=== PATIENT | female | born 1955 | race Caucasian/White ===

== ENCOUNTER 2018-10-25 06:02 | Emergency (ER) | payer SELFPAY ==
[~2018-10-25] VITALS: Ht 167.6 cm; Wt 81.8 kg
[~2018-10-25 06:02] MED LIST: CLONAZEPAM1 MG PO; CYMBALTA 60MG60 MG PO; GLIPIZIDE ER5 MG PO; IBUPROFEN800 MG PO; KLONOPIN 1MG1 M1 PO; LASIX40 MG PO; LIPITOR20 MG PO; LISINOPRIL10 MG PO; LORTAB 5/500 501 TAB PO; METFORMIN500 MG PO; PENNSAID 150 M150 ML TP; PREVACID 15MG15 M1 PO; SYNTHROID0.112 MG PO; TYLENOL 325MG325 MG PO
[2018-10-25 06:45] VITALS: BP 199/100; PULSE 85
== END 2018-10-25 06:45 | disposition short-term general hospital (02) ==
LOC: COL.ER 06:02
DX: I63.9 Cerebral infarction, unspecified (principal); E11.9 Type 2 diabetes mellitus without complications; Z79.84 Long term (current) use of oral hypoglycemic drugs
CPT/HCPCS: J7050

== ENCOUNTER 2019-06-01 07:33 | Outpatient (CLI) | payer MEDICAID ==
[2019-06-01] VITALS (7 sets, daily range): BP systolic 143–162; BP diastolic 64–81; PULSE 59–76
[~2019-06-01] VITALS: Ht 167.6 cm; Wt 75.5 kg
[~2019-06-01 07:33] MED LIST changes: +ASPIRIN 81M81 MG/TA2 PO; +HCTZ 25MG TAB25 MG PO; +INSHUMULIN7030KWIK SQ; +PRINIVIL40 MG PO; +TOPAMAX 25MG25 M1 PO
[2019-06-01 10:37] LABS: GLUCOSE,CSF 58 mg/dL (40-70); TOTAL PROTEIN,CSF 43 mg/dL (15-45)
[2019-06-01 10:53] LABS: CSF APPEARANCE CLEAR; CSF COLOR COLORLESS; CSF MONONUCLEAR 100 % (70-100); CSF POLYMORPHONUCLEAR 0 % (0-6); CSF RBC 0 /mm3 (0-0)
--- NOTE | 2019-06-01 11:20 | NUR ---
Discharge instructions given to pt.pt verbalizes understanding.pt escorted out via wheelchair by this nurse.
== END 2019-06-01 11:55 | disposition home or self-care (01) ==
LOC: COL.RAD 07:33
PROVIDERS: Psychiatry & Neurology Neurology
DX: G37.9 Demyelinating disease of central nervous system, unspecified (principal); R90.82 White matter disease, unspecified

== ENCOUNTER 2022-08-06 16:37 | Emergency (ER) | payer MEDICARE, MEDICAID ==
[~2022-08-06] VITALS: Ht 160 cm; Wt 77.3 kg
[2022-08-06 16:55] VITALS: TEMP 97.7
[2022-08-06 20:30] VITALS: BP 126/72; PULSE 80
== END 2022-08-06 20:48 | disposition home or self-care (01) ==
LOC: COL.ER 16:37
DX: S00.93XA Contusion of unspecified part of head, initial encounter (principal); S10.93XA Contusion of unspecified part of neck, initial encounter; E11.9 Type 2 diabetes mellitus without complications; Z79.4 Long term (current) use of insulin; W08.XXXA Fall from other furniture, initial encounter; W22.8XXA Striking against or struck by other objects, initial encounter; Y92.59 Other trade areas as the place of occurrence of the external cause